=== PATIENT | female | born 1990 | race Caucasian/White ===

== ENCOUNTER → 2016-11-21 | Outpatient (CLI) | payer OTHER ==
--- NOTE | 2016-11-21 17:58 | DX ---
Right Foot, Three Views HISTORY: Trauma, pain and swelling, 2nd toe trauma stubbed on bed frame. FINDINGS: Irregularity of the base of the right 2nd toe middle phalanx, which may represent a nondis placed oblique acute fracture extending into the proximal interphalangeal joint. Great toe and 3rd t hrough 5th toes demonstrate no definite additional fractures. Metatarsals appear intact. IMPRESSION: Right 2nd toe middle phalanx oblique base intraarticular fracture, without significant d isplacement.
== END ==
LOC: BRMIMAGING 13:16
PROVIDERS: ATTEND Physician Assistant
DX: S92.521A Displaced fracture of middle phalanx of right lesser toe(s), initial encounter for closed fracture (principal); W22.09XA Striking against other stationary object, initial encounter
CPT/HCPCS: 73630-PO